=== PATIENT | male | born 1995 | race Caucasian/White ===

== ENCOUNTER → 2022-07-09 09:01 | Outpatient (BNVA) | payer MEDICARE, MEDICAID, SELFPAY | PROVIDERS: Family Provider Family Medicine; PCP Family Medicine; Visit Provider Nurse Practitioner Psychiatric/Mental Health | DX: Z79.899 Other long term (current) drug therapy (principal) | CPT/HCPCS: 80053; 80061; 83036; 84443 ==

== ENCOUNTER 2023-07-22 00:41 | Emergency (ER) | payer MEDICARE, MEDICAID, SELFPAY ==
[2023-07-22 00:42] VITALS: BP 118/70; PULSE 89; RESP 18; TEMP 36.7; O2SAT 100; BMI 21.7
[2023-07-22] MEDS: OLANZapine 10 mg ODT 20 MG PO (01:46)
[2023-07-22 01:48] VITALS: BP 118/70; PULSE 89; RESP 18; TEMP 36.7; O2SAT 100
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
== END 2023-07-22 01:49 | disposition home or self-care (01) ==
PROVIDERS: Emergency Provider Emergency Medicine; PCP Family Medicine
DX: S00.83XA Contusion of other part of head, initial encounter (principal); F41.9 Anxiety disorder, unspecified; S00.81XA Abrasion of other part of head, initial encounter; Y04.2XXA Assault by strike against or bumped into by another person, initial encounter; Q86.0 Fetal alcohol syndrome (dysmorphic)
CPT/HCPCS: 99283